=== PATIENT | female | born 2000 | race African-American/Black ===

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

== ENCOUNTER 2020-03-08 02:45 | Emergency (ER) | payer OTHER, SELFPAY ==
[2020-03-08 03:27] LABS: Pregnancy Test - Urine (BHCG) Negative (Negative)
[2020-03-08 03:28] LABS: Pregu Control Background? CLEAR/WHITE (CLR/WHITE); Pregu Control Bar Appear? YES (CONTROL BAR)
== END 2020-03-08 03:40 | disposition home or self-care (01) ==
LOC: NAV ERS 02:45
DX: B34.9 Viral infection, unspecified (principal); D64.9 Anemia, unspecified; F17.210 Nicotine dependence, cigarettes, uncomplicated; D50.9 Iron deficiency anemia, unspecified
CPT/HCPCS: 81025; 99281

== ENCOUNTER 2020-03-09 13:27 | Emergency (ER) | payer SELFPAY | END 2020-03-09 14:30 | disposition home or self-care (01) | LOC: NAV ERS 13:27 | DX: J02.0 Streptococcal pharyngitis (principal); F17.210 Nicotine dependence, cigarettes, uncomplicated; D50.9 Iron deficiency anemia, unspecified | CPT/HCPCS: 87430; 99283 ==

== ENCOUNTER 2020-03-12 01:14 | Emergency (ER) | payer SELFPAY | END 2020-03-12 01:45 | disposition home or self-care (01) | LOC: NAV ERS 01:14 | DX: L98.8 Other specified disorders of the skin and subcutaneous tissue (principal); D50.9 Iron deficiency anemia, unspecified; F17.210 Nicotine dependence, cigarettes, uncomplicated; Z79.899 Other long term (current) drug therapy | CPT/HCPCS: 99283 ==

== ENCOUNTER 2020-07-06 02:38 | Emergency (ER) | payer SELFPAY ==
[2020-07-06 02:58] LABS: Pregnancy Test - Urine (BHCG) Negative (Negative); Pregu Control Background? CLEAR/WHITE (CLR/WHITE); Pregu Control Bar Appear? YES (CONTROL BAR); Specific Gravity 1.018 (1.002-1.036)
== END 2020-07-06 03:07 | disposition home or self-care (01) ==
LOC: NAV ERS 02:38
DX: N93.9 Abnormal uterine and vaginal bleeding, unspecified (principal); D50.0 Iron deficiency anemia secondary to blood loss (chronic); F17.210 Nicotine dependence, cigarettes, uncomplicated
CPT/HCPCS: 81025; 99284

== ENCOUNTER 2021-01-02 09:53 | Emergency (ER) | payer SELFPAY ==
[2021-01-02 10:14] LABS: Bilirubin Negative (Negative); Blood, Urine Negative (Negative); Clarity Clear (Clear); Glucose, Urine (Dipstick) Negative (Negative); Ketone, Urine Negative (Negative); Leukocyte Negative (Negative); Nitrite Negative (Negative); Protein, Urine (Dipstick) Negative (Neg-Trace)
[2021-01-02 10:18] LABS: Specific Gravity, Urine 1.028 (1.002-1.036)
[2021-01-02 10:19] LABS: Pregnancy Test - Urine (BHCG) Negative (Negative); Pregu Control Background? CLEAR/WHITE (CLR/WHITE); Pregu Control Bar Appear? YES (CONTROL BAR); Specific Gravity 1.028 (1.002-1.036)
[2021-01-02 11:00] LABS: Anion Gap 12 mmol/L (10-20); BUN (Urea Nitrogen) 9 mg/dL (7.0-18.7); Calc. Creatinine Clearance 0 mL/min (70-130); Calcium 8.9 mg/dL (7.8-10.44); Carbon Dioxide 20 mmol/L (22-29); Chloride 106 mmol/L (98-107); Glucose 122 mg/dL (70-105); Potassium 3.7 mmol/L (3.5-5.1); Sodium 134 mmol/L (136-145)
[2021-01-02 11:11] LABS: Hemoglobin 7.7 g/dL (12.0-16.0); Mean Corpuscular HGB CONC 28.8 g/dL (32.0-36.0); Mean Corpuscular Hemoglobin 18.2 pg (25.0-35.0); Mean Corpuscular Volume 63.4 fL (78.0-98.0); Mean Platelet Volume 9.4 fL (7.4-10.4); Platelet Count 244 thou/uL (130-400); RBC Distribution Width 15.3 % (11.5-14.5); Red Blood Cell (RBC) Count 4.21 mill/uL (4.00-5.20); White Blood Cell (WBC) Count 4.9 thou/uL (4.8-10.8)
[2021-01-02 11:12] LABS: MDiff Complete? YES; Reflex for Review?? YES
[2021-01-02 11:13] LABS: Anisocytosis SLIGHT = 6-15 cells (100X) (0-5/hpf); Eosinophils 3 % (0-10); Hypochromia MODERATE=16-30 cells (100X) (0-5/hpf); Lymphocytes 30 % (28-48); Microcytosis SLIGHT = 6-15 cells (100X) (0-5/hpf); Monocytes 3 % (0-4); Neutrophil 64 % (31-61); Platelet Morphology Comment Appears Adequate
== END 2021-01-02 11:50 | disposition home or self-care (01) ==
LOC: NAV ERS 09:53
DX: R30.0 Dysuria (principal); D50.9 Iron deficiency anemia, unspecified; F17.210 Nicotine dependence, cigarettes, uncomplicated
CPT/HCPCS: 80048; 81003; 81025; 85025; 85060; 87086; 99284